=== PATIENT | male | born 1985 | race Caucasian/White ===

== ENCOUNTER 2023-08-05 11:53 | Emergency (ER) | payer OTHER ==
[~2023-08-05] VITALS: Ht 182.9 cm; Wt 91.0 kg
[2023-08-05 11:58] VITALS: TEMP 98.1; O2SAT 100
[2023-08-05 13:14] VITALS: BP 119/70; PULSE 95; RESP 15
== END 2023-08-05 13:16 ==
LOC: ER 11:53
DX: T75.4XXA Electrocution, initial encounter (principal); F12.90 Cannabis use, unspecified, uncomplicated; X58.XXXA Exposure to other specified factors, initial encounter; Y93.89 Activity, other specified; Y92.89 Other specified places as the place of occurrence of the external cause; Y99.8 Other external cause status
CPT/HCPCS: 99283; Z7610

== ENCOUNTER 2024-09-21 12:26 | Emergency (ER) | payer MEDICAID, OTHER ==
[~2024-09-21] VITALS: Ht 180.3 cm; Wt 125.0 kg
[2024-09-21 12:27] VITALS: O2SAT 98
[2024-09-21] MEDS: ACETAMINOPHEN 325MG TABLET PO ONE (14:59)
[2024-09-21] MEDS ORDERED: BO1 TP (15:16)
[2024-09-21] MEDS ORDERED: IBUP-2028 MT (15:16)
[2024-09-21] MEDS: TETANUS, DIPHTHERIA, PERTUSSIS VAC/PF 0.5ML (>10YR OLD) IM ONE (16:07)
[2024-09-21 16:09] VITALS: BP 124/85; PULSE 90; RESP 18; TEMP 36.8; O2SAT 97
== END 2024-09-21 16:16 | disposition home or self-care (01) ==
LOC: ER 12:26
DX: S01.01XA Laceration without foreign body of scalp, initial encounter (principal); E11.9 Type 2 diabetes mellitus without complications; F20.9 Schizophrenia, unspecified; I10 Essential (primary) hypertension; W22.8XXA Striking against or struck by other objects, initial encounter; Y93.89 Activity, other specified; Y92.89 Other specified places as the place of occurrence of the external cause; Y99.8 Other external cause status
CPT/HCPCS: 73130; 70450; 72125; 90715; 29130; 90471; 99285; Z7610 ×3